=== PATIENT | male | born 1975 | race Two or more races ===

== ENCOUNTER 2018-07-09 15:33 | Emergency (ER) | payer OTHER ==
[~2018-07-09] VITALS: Ht 182.9 cm; Wt 110.7 kg
[2018-07-09 15:33] VITALS: BP 140/83
--- NOTE | 2018-07-09 16:10 | PHYS DOC ---
Past History Past Medical History: No Pertinent History Past Surgical History: Other Smoking: Non-smoker Alcohol Use: None Drug Use: None Adult General Chief Complaint Chief Complaint: FLU SYMPTOM HPI HPI Patient is a 43 year old male who presents with obtaining of cough and congestion for 2 weeks. Patient states he had productive cough with yellow and green sputum and nasal congestion associated with nausea and shortness of breath and myalgia that getting worse for the last 3 days. Patient states he had fever up to 100.1 with chills and worsening of his condition. Patient complaining of frequent and constant cough that does not let him to sleep. Review of Systems Review of Systems Constitutional: Reports fever Eyes: Denies change in visual acuity, redness, or eye pain [] HENT: Reports nasal congestion and sore throat Respiratory: Reports cough and shortness of breath Cardiovascular: No additional information not addressed in HPI [] GI: Denies abdominal pain, vomiting, bloody stools or diarrhea [] : Denies dysuria or hematuria [] Musculoskeletal: Denies back pain or joint pain [] Integument: Denies rash or skin lesions [] Neurologic: Denies headache, focal weakness or sensory changes [] Endocrine: Denies polyuria or polydipsia [] All other systems were reviewed and found to be within normal limits, except as documented in this note. Physical Exam Physical Exam Constitutional: Well developed, well nourished, moderate distress, non-toxic appearance. [] HENT: Normocephalic, atraumatic, bilateral external ears normal, oropharynx moist, no oral exudates, nose normal. [] Eyes: PERRLA, EOMI, conjunctiva normal, no discharge. [] Neck: Normal range of motion, no tenderness, supple, no stridor. [] Cardiovascular:Heart rate regular rhythm, no murmur [] Lungs & Thorax: Bilateral breath sounds clear to auscultation [] Abdomen: Bowel sounds normal, soft, no tenderness, no masses, no pulsatile masses. [] Skin: Warm, dry, no erythema, no rash. [] Back: No tenderness, no CVA tenderness. [] Extremities: No tenderness, no cyanosis, no clubbing, ROM intact, no edema. [] Neurologic: Alert and oriented X 3, normal motor function, normal sensory function, no focal deficits noted. [] Psychologic: Affect normal, judgement normal, mood normal. [] Current Patient Data Vital Signs Vital Signs Date Time Temp Pulse Resp B/P (MAP) Pulse Ox O2 Delivery O2 Flow Rate FiO2 07/09/18 15:33 82 20 140/83 (102) 96 Room Air 07/09/18 15:33 98.5 EKG EKG [] Radiology/Procedures Radiology/Procedures [address] [address] IMAGING REPORT Signed PATIENT: RUBY BERMUDEZ ACCOUNT: [id number] : 1975 LOCATION: ER AGE: 43 SEX: M EXAM STATUS: PRE ER ORD. PHYSICIAN: GALDINO FLORES MD REASON: cough PROCEDURE: CHEST PA & LATERAL PA and lateral views of the chest. Comparison: None. Indication: Cough with fever x 3 days, pt shielded Findings: Normal lung volume. No focal airspace disease. Normal pulmonary vasculature. No pleural effusion. No pneumothorax. The cardiomediastinal silhouette is normal in appearance. The great vessels are normal. No acute osseous abnormality. Impression: 1. No acute cardiopulmonary process. Electronically signed by: Kerwin Crowley MD (07/09/2018 4:42 PM) [facility] DICTATED AND SIGNED BY: KERWIN CROWLEY MD DATE: 07/09/18 164 CC: SUSIE MUSTAFA PA-C; GALDINO FLORES MD ~ Course & Med Decision Making Course & Med Decision Making Pertinent Labs and Imaging studies reviewed. (See chart for details) Evaluation of patient in ER showed 43-year-old male patient with complaining of cough and congestion for 2 weeks that getting worse for the last 2 days. Patient had negative flu and unremarkable chest x-ray. plan discharge patient home to diagnose of bronchitis. Dragon Disclaimer Dragon Disclaimer This electronic medical record was generated, in whole or in part, using a voice recognition dictation system. Departure Departure: Impression: Primary Impression: Acute bronchitis Additional Impression: Cough Disposition: HOME, SELF-CARE (@1645) Condition: IMPROVED Referrals: SUSIE MUSTAFA PA-C (PCP) Patient Instructions: Acute Bronchitis, Cough, Adult Additional Instructions: Drink plenty of liquids Follow-up with your primary care physician in 3-5 days Return to ER if not getting better Scripts Azithromycin (ZITHROMAX) 250 Mg Tablet 1 PKG PO UD for infection, #1 PKG Prov: GALDINO FLORES MD 07/09/18 Hydrocodone/Chlorphen P-Stirex (Tussionex Pennkinetic Susp) 115 Ml Xi.er.12h 5 ML PO BID for cough and congestion, #60 ML Prov: GALDINO FLORES MD 07/09/18 Methylprednisolone (MEDROL) 4 Mg Tab.ds.pk 1 PKG PO UD for inflammation, #1 PKG Prov: GALDINO FLORES MD 07/09/18 Problem Qualifiers GALDINO FLORES MD Jul 09, 2018 16:10
[2018-07-09] MEDS ORDERED: BENZONATATE 100 MG CAPSULE. PO ONE (16:15)
[2018-07-09] MEDS ORDERED: IPRATRPIUM/ALBUTEROL 0.5/2.5MG 3 ML NEBU. NEB ONE (16:15)
[2018-07-09 16:40] LABS: INFLUENZA A PATIENT NEGATIVE (NEGATIVE); INFLUENZA B PATIENT NEGATIVE (NEGATIVE)
[2018-07-09] MEDS ORDERED: HYDR115S2 PO (16:45)
[2018-07-09] MEDS ORDERED: AZIT250T PO (16:45)
[2018-07-09] MEDS ORDERED: METH4TAB2 PO (16:45)
--- NOTE | 2018-07-09 16:46 | RAD ---
PA and lateral views of the chest. Comparison: None. Indication: Cough with fever x 3 days, pt shielded Findings: Normal lung volume. No focal airspace disease. Normal pulmonary vasculature. No pleural effusion. No pneumothorax. The cardiomediastinal silhouette is normal in appearance. The great vessels are normal. No acute osseous abnormality. Impression: 1. No acute cardiopulmonary process. Electronically signed by: Kerwin Crowley MD (07/09/2018 4:42 PM) [facility]
== END 2018-07-09 16:57 | disposition home or self-care (01) ==
LOC: ER 15:33
DX: J20.9 Acute bronchitis, unspecified (principal)
CPT/HCPCS: 71046; 87804; 94640; 99284; J7620

== ENCOUNTER 2020-02-07 08:09 | Emergency (ER) | payer OTHER ==
[~2020-02-07] VITALS: Ht 182.9 cm; Wt 107.5 kg
[~2020-02-07 08:09] MED LIST: AZIT250T PO; HYDR115S2 PO; METH4TAB2 PO
[2020-02-07 08:10] VITALS: BP 123/81
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
[2020-02-07] MEDS ORDERED: DIPH,PERTUSS(ACELL),TET VAC/PF 0.5 ML SYRINGE. VAX IM ONE (08:45)
--- NOTE | 2020-02-07 09:14 | RAD ---
Bilateral wrists 3 views each. HISTORY: Wrist pain more on the left. Right wrist 3 views were taken of the right wrist. There is not evidence of an acute fracture or osseous abnormality. Left wrist 3 views of the left ribs show no evidence of an acute fracture or osseous abnormality. There are symmetric densities at the dorsal aspect of the wrist on both sides, small sesamoids are possible. IMPRESSION: 1. No fracture or acute osseous abnormality. Electronically signed by: Ney Horne MD (02/07/2020 9:11 AM) [id number]
== END 2020-02-07 09:32 | disposition home or self-care (01) ==
LOC: ER 08:09
DX: S60.212A Contusion of left wrist, initial encounter (principal); M25.531 Pain in right wrist; Z88.0 Allergy status to penicillin; Z88.8 Allergy status to other drugs, medicaments and biological substances; V29.9XXA Motorcycle rider (driver) (passenger) injured in unspecified traffic accident, initial encounter; Y93.I9 Activity, other involving external motion; Y92.488 Other paved roadways as the place of occurrence of the external cause; Y99.8 Other external cause status
CPT/HCPCS: 73110; 90471; 90715; 99283-25

== ENCOUNTER 2020-08-09 10:02 | Emergency (ER) | payer OTHER ==
[~2020-08-09] VITALS: Ht 182.9 cm; Wt 104.5 kg
--- NOTE | 2020-08-09 10:46 | RAD ---
AP chest. HISTORY: Dyspnea AP view was taken of the chest. Lungs are free of infiltrates. Heart is normal in size. There is no p leural effusion. IMPRESSION: 1. No acute chest disease. Electronically signed by: Ney Horne MD (08/09/2020 10:44 AM) [id number]
--- NOTE | 2020-08-09 10:54 | PHYS DOC ---
Past History Past Medical History: No Pertinent History Additional Past Medical Histor: spondylosis; psoriasis Past Surgical History: Other Additional Past Surgical Histo: SEPTOPLASTY Smoking: Non-smoker Alcohol Use: Occasionally Drug Use: None General Adult EDM: Chief Complaint: soa HPI: HPI: 45-year-old male presenting with dyspnea. He has a history of Covid. Over the past 6 days he has had worsening exertional dyspnea. He continues to have low- grade temperatures. Location lungs. Duration intermittent. Worse with walking. Improved with rest. He denies chest pain or unilateral leg swelling or hemoptysis. review of systems is negative for chest pain. He does report some bloating of the abdomen. He has had some loose stools. He denies vomiting. He has had a low-grade temperature. He denies rashes. He denies headache or nuchal rigidity. He does have muscle aches. All other review of systems negative. ED course: 45-year-old male presenting with shortness of breath after tatum Covid. Vital signs are unremarkable. Chest x-ray unremarkable. Blood work ordered. Blood work unremarkable. Negative D-dimer. On reexamination patient is resting comfortably breathing with normal oxygen levels. We will discharge to follow-up with PCP in 1 to 2 days. The patient has been examined and was not found to have an emergency medical condition. The patient was then discharged home in stable condition to follow up with their primary care physician over the next 1-2 days. They were to return if their symptoms worsened or if they were concerned for any reason. They were also instructed to return to the emergency department if they were unable to get the recommended and appropriate follow-up. [id number] discharge instructions and return precautions were given. Patient's questions were answered to their satisfaction. Patient is comfortable with plan. Allergies: Allergies: Allergies Coded Allergies Type Severity Reaction Last Updated Verified Penicillins Allergy Unknown 02/07/20 Yes celecoxib Allergy Unknown 02/07/20 Yes Physical Exam: PE: Constitutional: Well developed, well nourished, no acute distress, non-toxic appearance. [] HENT: Normocephalic, atraumatic, bilateral external ears normal, oropharynx moist, no oral exudates, nose normal. [] Eyes: PERRLA, EOMI, conjunctiva normal, no discharge. [] Neck: Normal range of motion, no tenderness, supple, no stridor. [] Cardiovascular:Heart rate regular rhythm, no murmur [] Lungs & Thorax: Bilateral breath sounds clear to auscultation [] Abdomen: Bowel sounds normal, soft, no tenderness, no masses, no pulsatile masses. [] Skin: Warm, dry, no erythema, no rash. [] Back: No tenderness, no CVA tenderness. [] Extremities: No tenderness, no cyanosis, no clubbing, ROM intact, no edema. [] Neurologic: Alert and oriented X 3, normal motor function, normal sensory function, no focal deficits noted. [] Psychologic: Affect normal, judgement normal, mood normal. [] Current Patient Data: Vital Signs: Vital Signs Date Time Temp Pulse Resp B/P (MAP) Pulse Ox O2 Delivery O2 Flow Rate FiO2 08/09/20 10:15 98.9 62 20 121/69 (86) 96 Room Air EKG: EKG: [] EKG shows sinus rhythm with a regular rate. ST segments congruent. Not suggestive of acute ischemia. Radiology/Procedures: Radiology/Procedures: [] Heart Score: Risk Factors: Risk Factors: DM, Current or recent (<one month) smoker, HTN, HLP, family history of CAD, obesity. Risk Scores: Score 0 - 3: 2.5% MACE over next 6 weeks - Discharge Home Score 4 - 6: 20.3% MACE over next 6 weeks - Admit for Clinical Observation Score 7 - 10: 72.7% MACE over next 6 weeks - Early Invasive Strategies Course & Med Decision Making: Course & Med Decision Making Pertinent Labs and Imaging studies reviewed. (See chart for details) [] Dragon Disclaimer: Ebenezer Disclaimer: This electronic medical record was generated, in whole or in part, using a voice recognition dictation system. Departure Departure: Impression: Primary Impression: Dyspnea Additional Impression: COVID-19 Disposition: 01 DC HOME SELF CARE/HOMELESS Condition: STABLE Referrals: SUSIE MUSTAFA PA-C (PCP) Patient Instructions: Shortness of Breath Additional Instructions: EMERGENCY DEPARTMENT GENERAL DISCHARGE INSTRUCTIONS Follow-up with your primary physician in 1 to 2 days. Return to the emergency department if you have any new or concerning findings. Thank you for coming to [facility] emergency department today and trusting us with you care. We trust that you had a positive experience in our Emergency Department. If you wish to speak to the department management, you may call the Director at [phone]. YOUR FOLLOW UP INSTRUCTIONS ARE FOLLOWS: 1. Do you have a private Doctor? If you do not have a private doctor, please ask for a resource list of physicians or clinics that may be able to assist you with follow up care. 2. If a lab test or culture has been done and does not come back immediately, your results will be reviewed and you will be notified if you need a change in treatment. ADDITIONAL INSTRUCTIONS AND INFORMATION: 1. Your care today has been supervised by a physician who is specially trained in emergency care. Many problems require more than one evaluation for a complete diagnosis and treatment. We recommend that you schedule your follow up appointment as recommended to ensure complete treatment of you illness or injury. If you are unable to obtain follow up care and continue to have a problem, or if your condition worsens, we recommend that you return to the ED. 2. We are not able to safely determine your condition over the phone nor are we able to give sound medical advice over the phone. For these safety reasons, if you call for medical advice we will ask you to come to the ED for further evaluation. 3. If you have any questions regarding these discharge instructions please call the ED at [phone]. SAFETY INFORMATION: In the interest of safety, wellness, and injury prevention; we encourage you to wear your sealbelt, if you smoke; quite smoking, and we encourage family to use a protective helmet for bicycling and other sporting events that present an increased risk for head injury. IF YOUR SYMPTOMS WORSEN OR NEW SYMPTOMS DEVELOP, OR YOU HAVE CONCERNS ABOUT YOUR CONDITION; OR IF YOUR CONDITION WORSENS WHILE YOU ARE WAITING FOR YOUR FOLLOW UP APPOINTMENT; EITHER CONTACT YOUR PRIMARY CARE DOCTOR, THE PHYSICIAN WHOSE NAME AND NUMBER YOU WERE GIVEN, OR RETURN TO THE ED IMMEDIATELY. This condition should be evaluated by your primary care physician and any necessary consulting services for continued management within a few days (1-2) after discharge. Return to the emergency department if you have any new or concerning symptoms including but not limited to fever, chills, nausea, vomiting, intractable pain, any new rashes, chest pain, shortness of breath, uncontrolled bleeding, difficulty breathing, and/or vision loss. DARIA BURTON MD Aug 09, 2020 10:54
[2020-08-09 10:55] LABS: BASO % 1 % (0-3); EOS % 0 % (0-3); HEMATOCRIT 41.8 % (39.0-53.0); HEMOGLOBIN 14.2 g/dL (13.0-17.5); LYMPH # 1.2 x10^3/uL (1.0-4.8); LYMPH % 33 % (24-48); MEAN CORPUSCULAR HEMOGLOBIN 30 pg (25-35); MEAN CORPUSCULAR HGB CONC 34 g/dL (31-37); MEAN CORPUSCULAR VOLUME 87 fL (79-100); MONO # 0.4 x10^3/uL (0.0-1.1); MONO % 10 % (0-9); NEUT # 2.2 x10^3uL (1.8-7.7); NEUT % 57 % (31-73); PLATELET COUNT 111 x10^3/uL (140-400); RED BLOOD COUNT 4.82 x10^6/uL (4.30-5.70); WHITE BLOOD COUNT 3.8 x10^3/uL (4.0-11.0)
[2020-08-09 11:04] LABS: CALCIUM 8.2 mg/dL (8.5-10.1); CREATININE 1.1 mg/dL (0.7-1.3); GFR 73.1
[2020-08-09 11:17] LABS: ALBUMIN 3.6 g/dL (3.4-5.0); DIRECT BILIRUBIN 0.1 mg/dL (0.0-0.2); TOTAL BILIRUBIN 0.5 mg/dL (0.2-1.0)
[2020-08-09 11:18] VITALS: BP 131/75
--- NOTE | 2020-08-09 11:23 | EKG ---
[facility] ED [facility] [place] [address] Test Date: 2020-08-09 Test Time: 10:31:12 Pat Name: RUBY BERMUDEZ Department: Room: Gender: M Spring Intern: : 1975 Requested By: DARIA BURTON Order Number: [id number] Reading MD: Newton Farrar Measurements Intervals [place] Rate: 62 P: 44 MA: 140 QRS: 90 QRSD: 82 T: 60 QT: 394 QTc: 402 Interpretive Statements SINUS RHYTHM NORMAL ECG RI6.02 No previous ECG available for comparison Electronically Signed On 08-12-2020 10:16:10 INVE[employer]MENT [employer]D [employer]NAGER by Newton Farrar
== END 2020-08-09 11:44 | disposition home or self-care (01) ==
LOC: ER 10:02
DX: R06.02 Shortness of breath (principal); U07.1 COVID-19; Z88.0 Allergy status to penicillin; Z88.8 Allergy status to other drugs, medicaments and biological substances
CPT/HCPCS: 36415; 71045; 80048; 80076; 83690; 83880; 84484; 85025; 85379; 93005; 99285-25